=== PATIENT | female | born 1955 | race Caucasian/White ===

== ENCOUNTER → 2018-05-27 15:03 | Outpatient (CLI) | payer MEDICAID, SELFPAY | DX: Z12.31 Encounter for screening mammogram for malignant neoplasm of breast (principal) | CPT/HCPCS: 77063; 77067 ==

== ENCOUNTER → 2018-06-14 07:56 | Outpatient (CLI) | payer MEDICARE, MEDICAID, SELFPAY ==
--- NOTE | 2018-06-14 08:03 | US_ITS ---
STUDY: ULTRASOUND BREAST - LEFT REASON FOR EXAM: Female, 63 years old. History of left nipple inversion. TECHNIQUE: Axial and longitudinal images of the LEFT breast were performed with a high resolution ultrasound transducer. COMPARISON: Comparison is made with prior mammogram dated May 27, 2018. FINDINGS: LEFT Breast: The retroareolar region of the left breast was examined by ultrasound. There is homogeneous fibroglandular tissue. No solid or cystic mass lesion is seen. US/Breast Limited Unilateral IMPRESSION: Unremarkable sonographic examination of the retroareolar region of the left breast. ASSESSMENT CATEGORY: BIRADS Category 1: Negative. A letter regarding these results will be sent to the patient by the facility within 30 days. Electronically Signed: Herber Kapoor MD at 9:58 EDT Tel [phone], Service support ,
== END ==
DX: R92.8 Other abnormal and inconclusive findings on diagnostic imaging of breast (principal)
CPT/HCPCS: 76642

== ENCOUNTER → 2019-12-13 11:50 | Outpatient (CLI) | payer MEDICARE, SELFPAY ==
--- NOTE | 2019-12-13 11:59 | BI_ITS ---
MAMMOGRAPHY - BILATERAL SCREENING REASON FOR EXAM: Female, 64 years old. Routine annual screening examination. PERTINENT HISTORY: Grandmother with breast cancer. Remote right stereotactic breast biopsy. TECHNIQUE: Digital bilateral breast mary jane (3D mammographic acquisition) in the CC and MLO projections. 2-D mediolateral oblique (MLO) and craniocaudad (CC) views of both breasts were obtained. CAD: Full Field Digital Mammography with Computer Added Detection was performed. COMPARISON: Comparison is made with prior study dated May 27, 2018 and June 14, 2017. FINDINGS: Breast Composition: There are scattered areas of fibroglandular density. There are no dominant masses or suspicious calcifications. There is a stable 1 cm x 0.7 cm well-defined nodule in the inferior anterior central portion of the right breast. A tissue marker is seen within. This is unchanged. No other significant abnormalities are identified. There has been no significant change since the prior study. BI/SCREEN MAMM (CAD) W/MARY JANE BILAT IMPRESSION: Stable bilateral screening mammogram. Yearly follow-up mammogram recommended. (A) ASSESSMENT CATEGORY: BIRADS Category 2: Benign. A letter regarding these results will be sent to the patient by the facility within 30 days. Approximately 10% of breast cancers are not detected by mammography. A normal mammogram should not delay biopsy of a clinically suspicious abnormality. [id number] Electronically Signed: Herber Kapoor, at 14:28 EDT , Service support ,
== END ==
DX: Z12.31 Encounter for screening mammogram for malignant neoplasm of breast (principal)
CPT/HCPCS: 77063; 77067

== ENCOUNTER 2020-02-16 10:55 | Emergency (ER) | payer MEDICARE, SELFPAY ==
[2020-02-16 10:56] VITALS: BP 163/88; PULSE 82; RESP 16; TEMP 36.3; O2SAT 98
--- NOTE | 2020-02-16 11:10 | VDLE_ITS ---
Reason For Study: Pain RIGHT LEFT CFV is compressible, spontaneous, phasic, GSV is normal. competent and demonstrates normal CFV is compressible, spontaneous, phasic, augmentation. competent, and demonstrates normal Procedure augmentation. Exam performed portable in ED. FV is compressible, spontaneous, phasic, A preliminary report was called and/or faxed competent and demonstrates normal to RN. augmentation. POP V is compressible, spontaneous, phasic, competent and demonstrates normal augmentation. T/P Trunk is compressible. PTV is compressible. LT PerV is compressible. Acute superficial vein thromosis is noted in the left SSV throughout, slighlty extending into the popliteal vein. Interpretation Summary There is no evidence of left lower extremity deep vein thrombosis. Left great saphenous vein appears patent and compressible segmentally. Superficial thrombophlebitis left small saphenous vein with very slight extension into the left popliteal vein Patent and compressible right common femoral vein Ordering Physician: Fermin Henley Performed By: Magdalene Miles RVT
--- NOTE | 2020-02-16 11:10 | ED.VIS.GEN ---
History of Present Illness Chief Complaint: Lower Extremity Injury Informant: Patient Narrative: Patient presents for evaluation of left calf pain. Patient states she said prior DVT in the right leg as well as PE. She states she had a surgical procedure on her left eye [facility] on Thursday. From what I can see and the computer she was diagnosed with choroid melanoma. She sees Dr. Anthony Iqbal at [facility]. she states that she has tried to really remain fairly active but began to have pain in the left calf yesterday. Is not currently on anticoagulation. Past Medical History - Allergies and Home Meds Allergies/Adverse Reactions: Allergies codeine Allergy (Verified 02/16/20 11:10) Swelling iodine Allergy (Verified 02/16/20 11:10) Swelling Primary Care Physician: Ghada Reyna [Primary Care Provider] - 1 Week Review of Systems General: Denies: Chills, Fever, Sweats Eyes: Denies: Visual changes - bilaterally, Diplopia ENT: Denies: Rhinorrhea, Sore throat Cardiovascular: Denies: Chest pain, Palpitations Respiratory: Denies: Dyspnea, Cough, Dyspnea on exertion Gastrointestinal: Denies: Abdominal pain, Nausea, Vomiting, Diarrhea, Melena, Hematochezia Genitourinary: Denies: Dysuria, Hematuria, Frequency Musculoskeletal: Reports: Extremity Pain. Denies: Back pain Skin: Denies: Rash, Wounds Neurological: Denies: Headache, Weakness, Numbness Physical Exam Vital Signs/Narrative: Vital Signs Temp Pulse Resp BP Pulse Ox 02/16/20 10:56 97.4 F L 82 16 163/88 H 98 Inital Vital Signs reviewed: Yes General: Well nourished, Well developed, No Acute Distress Head: Normocephalic, Atraumatic Eyes: - - Left eye closed and tearing ENT: Moist mucous membranes, No rhinorrhea Neck: Supple, Nontender Cardiovascular: Regular rate, Regular rhythm, No murmurs Respiratory: No distress, CTA bilaterally, Chest nontender Abdomen: Soft, Nontender, Nondistended, Normal bowel sounds Back: Nontender, Normal Inspection Extremities: Calf Tenderness - Left Skin: Normal color, No rash Neurological: Alert, Oriented x3, Cranial nerves II-XII grossly intact, Normal Strength, Normal Sensation Psychological: Normal affect, Normal Mood Diagnostic/Tx/Re-eval - Medical Decision Making Duplex ultrasound demonstrates acute superficial vein thrombosis in the left superficial saphenous vein throughout. This extends slightly into the popliteal vein. I spoke with her ophthalmology oncology physicians. They are comfortable starting on Eliquis. Even though this extends slightly into the popliteal vein with her prior history and active melanoma I think she is at high risk for propagation and therefore we should institute anticoagulation. I will contact her primary care. ED Disposition - Plan for ED Patient: Disposition: Home or Assisted Living Diagnosis: DVT of popliteal vein, Saphenous vein clot, Choroid melanoma of left eye Instructions: ED DVT Prescriptions: Apixaban [Eliquis] 5 mg PO BID #74 tab Prescription Printed [facility]errals: [facility]Ghada Chew [Primary Care Provider] - 1 Week Additional Instructions: I would recommend compression socks. When resting try to write the alphabet with your toes. This will improve blood flow to the leg. Please monitor your eye. If you have increased redness, pressure, double vision or worsening - please contact your surgeon GAL.
[2020-02-16] MEDS: Acetaminophen 500 MG Tablet 1000 MG PO (13:12)
[2020-02-16] MEDS: Ondansetron ODT 4 MG Tablet PO (13:13)
[2020-02-16 13:14] VITALS: RESP 17
[2020-02-16 13:31] VITALS: BP 138/74; PULSE 62; RESP 15; O2SAT 98
== END 2020-02-16 13:38 | disposition home or self-care (01) ==
PROVIDERS: Emergency Provider Emergency Medicine
DX: I82.432 Acute embolism and thrombosis of left popliteal vein (principal); I82.492 Acute embolism and thrombosis of other specified deep vein of left lower extremity; C69.32 Malignant neoplasm of left choroid
CPT/HCPCS: 93971; 99283

== ENCOUNTER → 2020-09-11 08:42 | Outpatient (CLI) | payer MEDICARE, SELFPAY ==
[2020-09-11 09:12] LABS: Absolute Lymphocyte Count 1.82 X10^3/uL (0.83-4.51); Absolute Neutrophil Count 4.4 X10^3/uL (2.0-7.7); Basophil# 0.04 X10^3/uL; Basophil% 0.6 % (0-1); Eosinophil# 0.14 X10^3/uL; Eosinophils% 2.1 % (0-5); Hematocrit 40.7 % (37-47); Hemoglobin 13.4 g/dL (12.0-15.0); Lymphocyte # 1.82 X10^3/ul (4.0); Lymphocyte % 26.7 % (19-41); Mean Corp Hgb Conc 32.9 g/dL (32-36); Mean Corpuscular Hgb 28.8 pg (27.0-32.0); Mean Corpuscular Volume 87.5 fL (81-99); Mean Platelet Vol. 10.3 fl (6.2-12.0); Monocyte# 0.36 X10^3/uL; Monocyte% 5.3 % (0-10); NRBC Flagged by Analyzer 0 % (0-5); Neutrophil # 4.42 X10^3/uL (2.7-7.7); Neutrophil % 64.7 % (47-70); Platelet Count 292 K/mm3 (150-450); RBC Distribution Width CV 13.2 % (11.6-14.6); RBC Distribution Width SD 42.5 fl (35.1-43.9); Red Blood Count 4.65 M/mm3 (4.2-5.4); White Blood Count 6.8 K/mm3 (4.4-11.0)
[2020-09-11 09:27] LABS: Hemoglobin A1c 7.3 % (3.8-5.6)
[2020-09-11 09:32] LABS: ALB/GLOB Ratio 1.1 RATIO (0.9-2.4); AST(SGOT) 15 U/L (15-37); Alanine Aminotransfer ALT/SGPT 25 U/L (13-56); Albumin, Serum 3.8 g/dL (3.2-5.0); Alkaline Phosphatase 69 U/L (45-117); Anion Gap 6 (5-15); BUN 12 mg/dL (7-18); BUN/Creat Ratio 13.4 RATIO (10-20); Calcium,Total 9.3 mg/dL (8.5-10.1); Chloride 106 mmol/L (98-107); EST Glomerular Filtration Rate 67 mL/min (>60); Est Glom Filt Rate - Afr Amer 81 mL/min (>60); Globulin 3.4 g/dL (2.2-4.2); Glucose 162 mg/dL (74-106); Potassium 4.2 mmol/L (3.5-5.1); Protein, Total 7.2 g/dL (6.4-8.2); Sodium Level 141 mmol/L (136-145)
[2020-09-11 09:34] LABS: Vitamin D,25 Hydroxy 86.2 ng/mL
== END ==
PROVIDERS: Referring Provider Family Medicine; Visit Provider Family Medicine
DX: E11.9 Type 2 diabetes mellitus without complications (principal); M25.59 Pain in other specified joint; E55.9 Vitamin D deficiency, unspecified
CPT/HCPCS: 36415; 80053; 82306; 83036; 85025

== ENCOUNTER → 2020-11-14 12:18 | Outpatient (CLI) | payer MEDICARE, SELFPAY ==
--- NOTE | 2020-11-14 12:26 | RAD_ITS ---
STUDY: BARIUM ENEMA. REASON FOR EXAM: Female, 65 years old. INCOMPLETE COLONOSCOPY FLUOROSCOPY TIME (if supplied): ( 1 minute and 13 seconds ) minutes/seconds. 15 images were obtained. TECHNIQUE: A assistant analyst film was obtained. Following this, contrast was introduced retrograde through the rectum. The entire colon was opacified. COMPARISON: None. FINDINGS: On the assistant analyst film, gas is seen in the colon. Surgical clips are seen in the right upper quadrant most likely secondary to prior cholecystectomy. Calcified phleboliths are seen in the pelvis. Minimal left scoliosis and degenerative changes of the lumbar spine. Contrast was introduced retrograde through the rectum. There is extensive diverticulosis of the descending colon as well as the splenic flexure and distal portion of the transverse colon. There is redundancy of the sigmoid colon. I suspect a 1.6 cm x 2 cm polyp in the descending colon just distal to the ileocecal valve. Adjacent to this, a similar appearing filling defect measuring 9 mm is seen. RAD/Barium Enema No Air Cont IMPRESSION: Extensive diverticulosis as described. 2. Filling defects are seen in the proximal ascending colon just distal to the ileocecal valve the larger measures 1.6 cm x 2 cm. These most likely represent small polyps. Electronically Signed: Herber Kapoor MD at 13:20 EST , Service support ,
== END ==
PROVIDERS: Referring Provider Surgery; Visit Provider Surgery
DX: K57.90 Diverticulosis of intestine, part unspecified, without perforation or abscess without bleeding (principal)
CPT/HCPCS: 74270

== ENCOUNTER → 2021-01-08 09:04 | Outpatient (CLI) | payer MEDICARE, SELFPAY ==
[2021-01-08 11:08] LABS: Anion Gap 7 (5-15); BUN 15 mg/dL (7-18); BUN/Creat Ratio 15.6 RATIO (10-20); Calcium,Total 9.1 mg/dL (8.5-10.1); Chloride 102 mmol/L (98-107); Creatinine, Serum 0.96 mg/dL (0.55-1.02); EST Glomerular Filtration Rate 62 mL/min (>60); Est Glom Filt Rate - Afr Amer 74 mL/min (>60); Glucose 166 mg/dL (74-106); Potassium 3.9 mmol/L (3.5-5.1); Sodium Level 137 mmol/L (136-145)
[2021-01-08 11:14] LABS: Hemoglobin A1c 7.4 % (3.8-5.6)
== END ==
DX: I10 Essential (primary) hypertension (principal); E11.9 Type 2 diabetes mellitus without complications
CPT/HCPCS: 36415; 80048; 83036

== ENCOUNTER → 2021-04-03 10:43 | Outpatient (CLI) | payer MEDICARE, SELFPAY ==
[2021-04-03 12:05] LABS: Hemoglobin A1c 7.8 % (3.8-5.6)
[2021-04-03 12:26] LABS: ALB/GLOB Ratio 1.1 RATIO (0.9-2.4); AST(SGOT) 13 U/L (15-37); Alanine Aminotransfer ALT/SGPT 25 U/L (13-56); Albumin, Serum 3.7 g/dL (3.2-5.0); Alkaline Phosphatase 77 U/L (45-117); Anion Gap 7 (5-15); BUN 14 mg/dL (7-18); BUN/Creat Ratio 13.9 RATIO (10-20); Calcium,Total 9.2 mg/dL (8.5-10.1); Chloride 103 mmol/L (98-107); Cholesterol 172 mg/dL (200); Creatinine, Serum 1.01 mg/dL (0.55-1.02); EST Glomerular Filtration Rate 58 mL/min (>60); Est Glom Filt Rate - Afr Amer 70 mL/min (>60); Globulin 3.3 g/dL (2.2-4.2); Glucose 164 mg/dL (74-106); High Density Lipoprotein 48 mg/dL; Potassium 4.3 mmol/L (3.5-5.1); Sodium Level 137 mmol/L (136-145); Triglycerides 198 mg/dL; Very Low Density Lipoprotein 40 mg/dL (5-40)
[2021-04-05 18:38] LABS: Vitamin D 1,25-Dihydroxy 49.6 pg/mL (19.9-79.3)
== END ==
PROVIDERS: Referring Provider Nurse Practitioner Adult Health; Visit Provider Nurse Practitioner Adult Health
DX: E11.9 Type 2 diabetes mellitus without complications (principal); E55.9 Vitamin D deficiency, unspecified
CPT/HCPCS: 36415; 80053; 80061; 82652; 83036

== ENCOUNTER 2021-07-19 14:35 | Emergency (ER) | payer MEDICARE, SELFPAY ==
[2021-07-19 14:35] VITALS: BP 193/87; PULSE 88; RESP 20; TEMP 36.6; O2SAT 99; BMI 30.9
[2021-07-19 14:44] VITALS: PULSE 90; O2SAT 97
--- NOTE | 2021-07-19 14:46 | EX.ED.DYSGE1 ---
HPI History of Present Illness Chief Complaint: Allergic Reaction Informant: patient Onset/Context/Timing Onset: Yesterday Current Severity: Moderate Maximum Severity: Severe Narrative Narrative: Patient presents with possible allergic reaction to clonidine. She was started on clonidine yesterday for blood pressure control. She took her first dose 8 AM yesterday and after taking her 8 PM dose last night states that she felt some slight tightness in her throat and a pasty sensation in her mouth. She took another dose at 8 AM this morning and felt significantly worse. She felt that her throat and tongue were swelling. Patient was able to eat and states that seem to make her throat feel better. She presents 6 and half hours after her most recent dose of medication. [facility] Medical History Diabetes DVT (deep venous thrombosis) GERD (gastroesophageal reflux disease) Hypertension Melanoma of eye Home Medications Glipizide [Glipizide Er] 2.5 mg PO DAILY 02/16/20 [History Last Taken Unknown] apixaban 5 mg PO BID #74 tab 02/16/20 [Rx Last Taken Unknown] cyclopentolate 2 drp LEFT EYE BID 02/16/20 [History Last Taken Unknown] diltiazem HCl 300 mg PO DAILY 02/16/20 [History Last Taken Unknown] ergocalciferol (vitamin D2) 50,000 unit PO Q7D 02/16/20 [History Last Taken Unknown] irbesartan 150 mg PO DAILY 02/16/20 [History Last Taken Unknown] metformin 1,000 mg PO BID 02/16/20 [History Last Taken Unknown] neomycin-polymyxin B-dexameth 1 applic LEFT EYE 4X/DAY 02/16/20 [History Last Taken Unknown] omeprazole 40 mg PO DAILY 02/16/20 [History Last Taken Unknown] diphenhydramine HCl [Benadryl] 50 mg PO TID PRN #14 cap 07/19/21 [Rx Last Taken Unknown] famotidine [Pepcid] 40 mg PO DAILY #5 tab 07/19/21 [Rx Last Taken Unknown] prednisone 60 mg PO DAILY #15 tab 07/19/21 [Rx Last Taken Unknown] Allergy/AdvReac Type Severity Reaction Status Date / Time codeine Allergy Swelling Verified 07/19/21 14:37 iodine Allergy Swelling Verified 07/19/21 14:37 Social History Smoking Status: Former smoker ROS ROS ED Constitutional Constitutional ED: Denies chills or fever(s) Eyes Eyes: Denies change in vision ENT ENT ED: Reports sore throat and other Details: Throat and tongue swelling Cardiovascular Cardiovascular: Denies chest pain Respiratory/Chest Respiratory/Chest: Reports dyspnea; Denies cough Gastrointestinal Gastrointestinal: Denies abdominal pain, diarrhea, nausea or vomiting Genitourinary Genitourinary ED: Denies dysuria Musculoskeletal Musculoskeletal: Denies back pain Integumentary Denies rash Neurologic Neurologic: Denies headache(s) or weakness Allergic/Immunologic Allergic/Immunologic ED: Denies urticaria EXAM Physical Exam Const Vital Signs: 07/19/21 14:35 07/19/21 14:44 Temperature 97.8 F Temperature Source Temporal Pulse Rate 88 90 Respiratory Rate 20 H Blood Pressure 193/87 H Blood Pressure Mean 122 Pulse Ox 99 97 Oxygen Delivery Method Room Air Room Air Positive well nourished and well developed General Appearance ED: well developed HEENT Reports normocephalic, head/scalp atraumatic and moist mucous membranes HEENT Narrative: Intraoral examination shows no obvious abnormalities. No visible tongue edema. Posterior pharynx appears normal. Patient tolerating secretions well and speaks with a strong voice. Eyes PERRL and EOMs intact bilaterally Neck supple Lymph Lymphatic Narrative: Bilateral anterior cervical lymphadenopathy. Chest Wall inspection of chest normal and palpation of chest normal Resp normal respiratory effort and clear to auscultation bilaterally Cardio regular rate and regular rhythm GI normal to inspection, nondistended, normoactive bowel sounds Palpation: soft Extremity normal to inspection Neuro oriented x3 and no sensory deficits noted Sensorium / Orientation: alert Motor Exam: strength 5/5 throughout Psych mental status grossly normal Skin no rashes or lesions noted MDM MDM MDM Narrative Medical decision making narrative: Patient is placed on continuous pulse ox monitoring. She is given Solu-Medrol, Pepcid, Benadryl. Treatment and Re-Evaluation Comments:: Multiple repeat examinations patient has shown significant improvement. She states her tongue feels back to baseline. She is tolerating p.o. fluids at this time. She will require further observation of this to be set up to oncoming physician. I anticipate she will be able to be discharged to home in a couple hours. I will go ahead and have medications written for her. Discharge Plan Triage Chief Complaint: Allergic Reaction ED Provider: Dominique Fuentes Dx/Rx/DC Orders Clinical Impression: Allergic reaction Instructions: ED General Allergic Reactions Prescriptions: New prednisone 20 mg tablet 60 mg PO DAILY Qty: 15 RF: 0 diphenhydramine HCl [Benadryl] 25 mg capsule 50 mg PO TID PRN (Reason: allergic reaction) Qty: 14 RF: 0 famotidine [Pepcid] 40 mg tablet 40 mg PO DAILY Qty: 5 RF: 0 No Action diltiazem HCl 300 MG capsule,extended release 24 hr 300 mg PO DAILY RF: 0 omeprazole 40 MG capsule,delayed release(DR/EC) 40 mg PO DAILY RF: 0 ergocalciferol (vitamin D2) 50,000 UNIT capsule 50,000 unit PO Q7D RF: 0 irbesartan 150 MG tablet 150 mg PO DAILY RF: 0 metformin 500 MG tablet extended release 24 hr 1,000 mg PO BID RF: 0 cyclopentolate 15 ML drops 2 drp LEFT EYE BID RF: 0 neomycin-polymyxin B-dexameth 3.5 GM ointment 1 applic LEFT EYE 4X/DAY RF: 0 Glipizide [Glipizide Er] 2.5 MG Tab.Er.24 2.5 mg PO DAILY RF: 0 apixaban 5 MG tablet 5 mg PO BID Qty: 74 RF: 0 Primary Care Provider: Ghada Holcomb Referrals: [facility] Ghada Duncan [Primary Care Provider] - 1 Week Disposition Disposition: Home, Self Care
[2021-07-19] MEDS: DiphenhydrAMINE 50 MG/ML Syringe 25 MG IV (15:06)
[2021-07-19] MEDS: MethylPREDNISolone 125 MG/2 ML Vial IV (15:08)
[2021-07-19] MEDS: Famotidine 200 MG/20 ML MDV 20 MG in 0.9% Normal Saline (Pres. free 8 ML 300 MG IV (15:15)
--- NOTE | 2021-07-19 16:25 | ED.RN ---
CALLED PHARMACY REGARDING EYE DROPS.
[2021-07-19] MEDS: prednisoLONE eye drops (1 mL) 1 DROP OPTH.BTL 1 DRP LEFT EYE (16:31)
[2021-07-19 17:27] VITALS: O2SAT 95
[2021-07-19 18:03] VITALS: BP 158/73; PULSE 73; RESP 16; O2SAT 98
== END 2021-07-19 18:06 | disposition home or self-care (01) ==
PROVIDERS: Emergency Provider Emergency Medicine
DX: R06.00 Dyspnea, unspecified (principal); R59.0 Localized enlarged lymph nodes; J02.9 Acute pharyngitis, unspecified; T46.5X5A Adverse effect of other antihypertensive drugs, initial encounter; Y92.9 Unspecified place or not applicable; E11.9 Type 2 diabetes mellitus without complications; I10 Essential (primary) hypertension; K21.9 Gastro-esophageal reflux disease without esophagitis; Z79.84 Long term (current) use of oral hypoglycemic drugs; Z79.01 Long term (current) use of anticoagulants; Z79.52 Long term (current) use of systemic steroids; Z87.891 Personal history of nicotine dependence
CPT/HCPCS: 96374; 96375; 99283; J7030; J3490

== ENCOUNTER 2021-11-25 16:04 | Emergency (ER) | payer MEDICARE, MEDICAID, SELFPAY ==
[2021-11-25 16:05] VITALS: BP 161/72; PULSE 104; RESP 16; TEMP 36.2; O2SAT 98; BMI 29.2
[2021-11-25 16:44] LABS: Absolute Lymphocyte Count 2.08 X10^3/uL (0.83-4.51); Absolute Neutrophil Count 7.7 X10^3/uL (2.0-7.7); Basophil# 0.08 X10^3/uL; Basophil% 0.8 % (0-1); Eosinophil# 0.05 X10^3/uL; Eosinophils% 0.5 % (0-5); Hematocrit 39.7 % (37-47); Hemoglobin 13.1 g/dL (12.0-15.0); Lymphocyte # 2.08 X10^3/ul (0.83-4.51); Lymphocyte % 19.7 % (19-41); Mean Corpuscular Hgb 27.8 pg (27.0-32.0); Mean Corpuscular Volume 84.1 fL (81-99); Monocyte# 0.65 X10^3/uL; Monocyte% 6.1 % (0-10); NRBC Flagged by Analyzer 0 % (0-5); Neutrophil # 7.66 X10^3/uL (2.7-7.7); Neutrophil % 72.3 % (47-70); Platelet Count 481 K/mm3 (150-450); RBC Distribution Width CV 12.9 % (11.6-14.6); RBC Distribution Width SD 39.8 fl (35.1-43.9); Red Blood Count 4.72 M/mm3 (4.2-5.4); White Blood Count 10.6 K/mm3 (4.4-11.0)
[2021-11-25 16:54] LABS: Mucous, Urine 0 SEEN /hpf (<or=2+); Red Blood Cells-Urine 0 SEEN /hpf (0-5)
[2021-11-25 17:01] LABS: Anion Gap 6 (5-15); BUN 11 mg/dL (7-18); BUN/Creat Ratio 10.5 RATIO (10-20); Calcium,Total 9.5 mg/dL (8.5-10.1); Chloride 105 mmol/L (98-107); Creatinine, Serum 1.05 mg/dL (0.55-1.02); EST Glomerular Filtration Rate 55 mL/min (>60); Est Glom Filt Rate - Afr Amer 67 mL/min (>60); Estimated Creatinine Clearance 42.42 ml/min; Glucose 125 mg/dL (74-106); Potassium 4.1 mmol/L (3.5-5.1); Sodium Level 135 mmol/L (136-145)
[2021-11-25 17:01] LABS: Color, Urine Yellow (Yellow); Glucose, Dipstick Normal (Normal); Ketone-Dipstick 5 mg/dl (Negative); Leukocyte Esterase-Dipstick 500 /ul (Negative); Nitrite-Dipstick Negative (Negative); Occult Blood-Urine Negative /ul (Negative); Protein-Dipstick 30 mg/dl (Negative); Specific Gravity, Urine 1.025 (1.002-1.030); Urine Clarity Sl. Cloudy (Clear); Urine Urobilinogen Normal (Normal)
[2021-11-25 17:02] LABS: Urine Bilirubin Dipstick 1 mg/dL (Negative)
--- NOTE | 2021-11-25 17:07 | CT_ITS ---
STUDY: CT Abdomen And Pelvis W/ Contrast Injection 11/25/2021 7:26 PM REASON FOR EXAM: Female, 66 years old. ABDOMINAL PAIN abd pain TECHNIQUE: Transaxial images were obtained with oral contrast, and with Oral and amp; IV and amp; 100mL Isovue-370 intravenous contrast. Individualized dose optimization techniques were used for this CT. COMPARISON: None. FINDINGS: The visualized lung bases are unremarkable. The visualized portions of the heart are within normal limits. There is hepatomegaly with diffuse hepatic enlargement. Diffuse heterogeneous lesions in the liver concerning for metastatic disease. There are surgical clips in the gallbladder fossa consistent with a prior cholecystectomy. Normal spleen. Normal pancreas. Enlarged peripancreatic lymph nodes. Normal bilateral adrenal glands. No acute findings of the right kidney. No acute findings of the left kidney. There is a small hiatal hernia. Normal small intestine. There are multiple colonic diverticula consistent with diverticulosis. There is non-visualization of the appendix. There are calcifications of the abdominal aorta. This is consistent for atherosclerotic disease. There is no abdominal aortic aneurysm. Normal inferior vena cava. Subcentimeter mesenteric lymph nodes. Normal urinary bladder. There is absence of the uterus consistent with a prior hysterectomy. There is an umbilical hernia containing fat. There are diffuse degenerative changes of the visualized lumbar spine. There is scoliosis of the lumbar spine. There is bilateral neural foraminal stenosis at L4-5 and L5-S1. There is scoliosis of the lumbar spine. IMPRESSION: (NOT LISTED IN ORDER OF SIGNIFICANCE) Enlarged liver. Diffuse heterogeneous lesions in the liver concerning for metastatic disease. ACR White Paper guidelines (Nichelle et al. JACR 2017; 14(11):5636-2041.) suggest the following. For patients with low risk of malignancy, recommend hepatic MR. For patients with high risk of malignancy (known malignancy with a propensity to metastasize to the liver, cirrhosis, and/or other hepatic risk factors), recommend hepatic MR or core biopsy. Enlarged peripancreatic lymph nodes. There are surgical clips in the gallbladder fossa consistent with a prior cholecystectomy. Other findings as above. Electronically Signed: Colin Meyer MD at 19:31 EST , CT/Abdomen/Pelvis W IV Cont ONLY
[2021-11-25 17:09] LABS: Bacteria 1+ /hpf (None Seen); Squamous Epithelial Cells - UA 0-5 SEEN /hpf (5-10); White Blood Cells 0-5 SEEN /hpf (0-5)
--- NOTE | 2021-11-25 17:09 | EDS_ITS ---
HPI HPI - GI History of Present Illness Chief Complaint: Abd Pain Informant: patient Abdominal Pain/Flank Pain Onset: Month(s) Context: Gradual Onset Timing: Intermittent Quality: Aching Location: Epigastric, RUQ and LUQ Current Severity: Mild Maximum Severity: Mild Worsened by: Nothing Relieved by: Food Nausea/Vomiting/Emesis GI Symptom: Positive for Nausea and Vomiting Onset: Weeks Severity: Mild Diarrhea/Melena/Hematochezia GI Symptom: Negative for Diarrhea, Melena and Hematochezia Associated Symptoms Associated Symptoms: Negative for Dysuria, Frequency, Hematuria and Urgency Narrative Narrative: 58-year-old female history of diabetes, DVT on Eliquis prior left eye melanoma, left eye blindness, cholecystectomy, appendectomy and hysterectomy. States for the last 2 months she has had nausea. Over the last several weeks to 1 month she has had nausea and vomiting. And now also having upper abdominal pain which radiates to both flanks. Decreased intake. She has had both upper and lower endoscopy without any specific diagnosis about a year ago. She has had a recent about 10 pound weight loss. No fever. No dysuria. Prior similar symptoms: Yes Recent Illness/Hospitalization: No PFSH PFSH Medical History Diabetes DVT (deep venous thrombosis) GERD (gastroesophageal reflux disease) Hypertension Melanoma of eye Home Medications apixaban 5 mg PO BID #74 tab 02/16/20 [Rx Last Taken Unknown] diltiazem HCl 300 mg PO DAILY 02/16/20 [History Last Taken Unknown] ergocalciferol (vitamin D2) 50,000 unit PO Q7D 02/16/20 [History Last Taken Unknown] irbesartan 150 mg PO DAILY 02/16/20 [History Last Taken Unknown] metformin 1,000 mg PO BID 02/16/20 [History Last Taken Unknown] omeprazole 40 mg PO DAILY 02/16/20 [History Last Taken Unknown] cholecalciferol (vitamin D3) 1,250 mcg PO DAILY 11/25/21 [History Last Taken Unknown] dorzolamide-timolol 1 drp LEFT EYE BID 11/25/21 [History Last Taken Unknown] gabapentin 300 mg PO BID 11/25/21 [History Last Taken Unknown] glipizide 2.5 mg PO DAILY 11/25/21 [History Last Taken Unknown] hydralazine 10 mg PO BID 11/25/21 [History Last Taken Unknown] loratadine 10 mg PO DAILY 11/25/21 [History Last Taken Unknown] ondansetron 4 mg PO Q4H 4 Days #14 tab 11/25/21 [Rx Last Taken Unknown] prednisolone acetate 1 drp LEFT EYE BID 11/25/21 [History Last Taken Unknown] Allergy/AdvReac Type Severity Reaction Status Date / Time codeine Allergy Swelling Verified 11/25/21 16:08 iodine Allergy Swelling Verified 11/25/21 16:08 Social History Smoking Status: Former smoker ROS ROS ED ROS Narrative Nausea and vomiting. Abdominal pain. Review of Systems ROS Unobtainable: Denies due to encephalopathy Constitutional Constitutional ED: Denies fever(s) ENT ENT ED: Denies ear pain Cardiovascular Cardiovascular: Denies chest pain Respiratory/Chest Respiratory/Chest: Denies dyspnea Gastrointestinal Gastrointestinal: Reports abdominal pain, nausea and vomiting; Denies constipation, diarrhea or melena Genitourinary Genitourinary ED: Denies dysuria Musculoskeletal Musculoskeletal: Denies myalgias Integumentary Denies rash Neurologic Neurologic: Denies headache(s) Psychiatric Psychiatric: Denies depression Endocrine Endocrinology: Denies polyuria Hematologic/Lymphatic Hematologic/Lymphatic: Denies easy bruising Allergic/Immunologic Allergic/Immunologic ED: Denies urticaria EXAM Physical Exam Narrative Exam Narrative: 66-year-old female no acute distress. Vital signs stable afebrile. H EENT right eye unremarkable. Left eye lens implant. Blind in the left eye.. Moist mucous memories. Lungs clear to auscultation. Heart regular rhythm no murmur. Abdomen soft nondistended normal bowel sounds no peritoneal signs. Tender in both the epigastric and both upper quadrants. No hernia or mass. No obstruction. Positive bowel sounds. Both lower quadrants are unremarkable. Patient moving all 4 extremities. Calves are nontender without edema. Neurologically she is awake and alert. Const Vital Signs: 11/25/21 16:05 Temperature 97.1 F L Temperature Source Temporal Pulse Rate 104 H Respiratory Rate 16 Blood Pressure 161/72 H Blood Pressure Mean 101 Pulse Ox 98 Oxygen Delivery Method Room Air Positive well nourished, well developed and obese; Negative for cachectic, contractures or unkempt General Appearance ED: well developed and NAD; Negative for unkempt, cachectic, contractures or pallor Nutritional Appearance: obese; Negative for cachectic HEENT Reports moist mucous membranes normocephalic and atraumatic; Negative for trauma or tenderness Eyes PERRL and EOMs intact bilaterally General Eye ED: Negative for pale conjunctiva or scleral icterus Neck no lymphadenopathy, supple and no JVD General: Negative for tenderness Resp normal respiratory effort and clear to auscultation bilaterally Auscultation: Negative for rales, rhonchi or wheezes Cardio regular rate, regular rhythm, S1 normal heart sound, S2 normal heart sound and no murmurs GI non-distended and no masses; Negative for non-tender Inspection: Negative for abdominal distention Auscultation: normoactive bowel sounds; Negative for hyperactive bowel sounds or hypoactive bowel sounds Palpation: soft and tender; Negative for guarding, rigid or rebound tenderness present Back/Spine no CVA tenderness General Back: Negative for CVA tenderness Extremity full ROM General Extremety ED: Negative for edema or tenderness General Extremity: Negative for edema Neuro moves all extremities Neuro Narrative: Left eye blindness. Sensorium / Orientation: alert, oriented to person, oriented to place and oriented to time; Negative for orientation impaired, confused, lethargic or jean porous Motor Exam: strength 5/5 throughout Psych mental status grossly normal and thought process normal Appearance: Negative for unkempt Skin no wounds General Skin Exam: Negative for jaundice or pallor Lesions: no lesions Rashes: no rashes MDM MDM MDM Narrative Medical decision making narrative: 58-year-old female with 1 to 2-month history of nausea vomiting abdominal pain. CAT scan labs are pending. She also be treated with IV morphine and Zofran for pain. Repeat exam patient is doing well at 8:15 PM. She denies discussed her test results specifically her CAT scan and my concern for metastatic disease to her liver. She understands we do not have a firm diagnosis and may need further studies including a liver biopsy. She is already seeing Dr. Hai Davis of oncology and will follow up with him. She is finally being discharged to home and will be given a prescription of Zofran which we will fill here. Lab Data Attestation: I reviewed the patient's lab results. Lab results narrative: CBC White count 10. H&H of 13 and 39. Electrolytes show a gap of 6 a normal BUN and creatinine. Glucose 125. UA is negative. Labs: Laboratory Results - last 24 hr 11/25/21 11/25/21 11/25/21 16:10 16:10 16:50 WBC 10.6 RBC 4.72 Hgb 13.1 Hct 39.7 MCV 84.1 MCH 27.8 MCHC 33.0 RDW Std Deviation 39.8 RDW Coeff of Kenny 12.9 Plt Count 481 H MPV 11.0 Immature Gran % (Auto) 0.600 Neut % (Auto) 72.3 H Lymph % (Auto) 19.7 [place] % (Auto) 6.1 Eos % (Auto) 0.5 Baso % (Auto) 0.8 Absolute Neuts (auto) 7.7 Absolute Lymphs (auto) 2.08 Nucleated RBC % 0 Sodium 135 L Potassium 4.1 Chloride 105 Carbon Dioxide 24.0 Anion Gap 6 BUN 11 Creatinine 1.05 H Estim Creat Clear Calc 42.42 Est GFR (MDRD) Af Amer 67 Est GFR (MDRD) Non-Af 55 L BUN/Creatinine Ratio 10.5 Glucose 125 H Calcium 9.5 Urine Color Yellow Urine Clarity Sl. Cloudy Urine pH 5.0 Ur Specific [place] 1.025 Urine Protein 30 H Urine Glucose (UA) Normal Urine Ketones 5 H Urine Occult Blood Negative Urine Nitrite Negative Urine Bilirubin 1 H Urine Urobilinogen Normal Ur Leukocyte Esterase 500 H Urine RBC 0 SEEN Urine WBC 0-5 SEEN Ur Squamous Epith Cells 0-5 SEEN Urine Bacteria 1+ Urine Mucus 0 SEEN Radiography Diagnostic Testing: Clinical Impression(s) from Imaging Studies Abdomen/Pelvis CT 11/25/21 17:07 Discharge Plan Triage Chief Complaint: Abd Pain ED Provider: Herman Caicedo Dx/Rx/DC Orders Clinical Impression: Abdominal pain Instructions: Abdominal Pain, ED Vomiting (Adult) Prescriptions: New ondansetron 4 mg tablet,disintegrating 4 mg PO Q4H 4 Days Qty: 14 RF: 0 No Action diltiazem HCl 300 MG capsule,extended release 24 hr 300 mg PO DAILY RF: 0 omeprazole 40 MG capsule,delayed release(DR/EC) 40 mg PO DAILY RF: 0 ergocalciferol (vitamin D2) 50,000 UNIT capsule 50,000 unit PO Q7D RF: 0 irbesartan 150 MG tablet 150 mg PO DAILY RF: 0 metformin 500 MG tablet extended release 24 hr 1,000 mg PO BID RF: 0 apixaban 5 MG tablet 5 mg PO BID Qty: 74 RF: 0 hydralazine 10 mg tablet 10 mg PO BID RF: 0 prednisolone acetate 1 % drops,suspension 1 drp LEFT EYE BID RF: 0 glipizide 2.5 mg tablet extended release 24hr 2.5 mg PO DAILY RF: 0 gabapentin 300 mg capsule 300 mg PO BID RF: 0 dorzolamide-timolol 22.3-6.8 mg/mL drops 1 drp LEFT EYE BID RF: 0 loratadine 10 mg Tablet 10 mg PO DAILY RF: 0 cholecalciferol (vitamin D3) 1,250 mcg (50,000 unit) capsule 1,250 mcg PO DAILY RF: 0 [facility] Referrals: Hai Davis DO [STAFF PHYSICIAN] - As soon as possible [facility],Gh[facility] Chew [Primary Care Provider] - Activity Restrictions/Additional Instructions: Follow-up with Dr. Hai Davis soon as possible. I did speak with him this evening. Most likely will need a liver biopsy. Zofran as needed for nausea. Disposition Disposition: Home, Self Care
[2021-11-25] MEDS: Ondansetron 4 MG/2 ML Vial IV ×2 (17:52→20:36)
[2021-11-25] MEDS: MethylPREDNISolone 125 MG/2 ML Vial IV (17:52)
[2021-11-25] MEDS: Morphine 4 MG/ML Syringe IV ×2 (17:54→20:36)
[2021-11-25] MEDS: DiphenhydrAMINE 50 MG/ML Syringe 25 MG IV (18:02)
[2021-11-25 20:00] VITALS: BP 123/78; PULSE 98; RESP 17; O2SAT 95
[2021-11-25 20:52] VITALS: BP 114/74; PULSE 88; RESP 17; O2SAT 95
== END 2021-11-25 21:22 | disposition home or self-care (01) ==
PROVIDERS: Emergency Provider Emergency Medicine; Visit Provider Emergency Medicine
DX: R10.13 Epigastric pain (principal); E11.9 Type 2 diabetes mellitus without complications; R11.2 Nausea with vomiting, unspecified; I10 Essential (primary) hypertension; K21.9 Gastro-esophageal reflux disease without esophagitis; E66.9 Obesity, unspecified; Z90.49 Acquired absence of other specified parts of digestive tract; Z90.710 Acquired absence of both cervix and uterus; Z79.01 Long term (current) use of anticoagulants; Z79.84 Long term (current) use of oral hypoglycemic drugs; Z79.899 Other long term (current) drug therapy; Z86.718 Personal history of other venous thrombosis and embolism; Z87.891 Personal history of nicotine dependence
CPT/HCPCS: 74177; 80048; 81001; 85025; 96374; 96375; 96376; 99283; Q9967; A4216; J2405

== ENCOUNTER 2021-12-16 11:19 | Emergency (ER) | payer MEDICARE, MEDICAID, SELFPAY ==
[2021-12-16 11:19] VITALS: BP 165/79; PULSE 112; RESP 16; TEMP 36.3; O2SAT 96; BMI 28.0
--- NOTE | 2021-12-16 13:11 | CT_ITS ---
STUDY: CT ABDOMEN WITH CONTRAST REASON FOR EXAM: Female, 66 years old. Right upper quadrant pain status post liver biopsy RADIATION DOSAGE (If Supplied By Facility): CTDIvol = ( 18.1 ) mGy, DLP = ( 913.18 ) mGycm TECHNIQUE: Transaxial images were obtained post I.V. administration of IV 100mL Isovue-300, and oral contrast. Sagittal and coronal images were reconstructed. Individualized dose optimization techniques were used for this CT. COMPARISON: Comparison is made with prior examination of 11/25/2021. FINDINGS: Minimal increased markings at the right lung base. Coronary artery calcification. There is hepatomegaly with diffuse hepatic enlargement. Heterogeneous appearance of the liver with focal areas of decreased attenuation suggestive of metastatic disease. There now is evidence of a 3.6 cm x 2.1 cm focal collection of the hyperdense fluid in the right subcapsular perihepatic space suggestive of possible resolving hematoma from recent biopsy. There are surgical clips in the gallbladder fossa consistent with a prior cholecystectomy. Normal spleen. There is diffuse atrophy of the pancreas. Normal bilateral adrenal glands. Normal right kidney. Normal left kidney. Normal visualized stomach. Normal small intestine. Normal colon. The appendix is visualized and appears normal. There is diffuse atherosclerotic calcification of the abdominal aorta, without a demonstrated aneurysm. Normal inferior vena cava. Normal retroperitoneum. There is a 3.5 cm x 3.4 cm cystic structure in the right lower abdomen. Normal abdominal wall. There are diffuse degenerative changes of the visualized lumbar spine. CT/Abdomen WITH IV Contrast IMPRESSION: Heterogeneous appearance of the liver with findings suggestive of a small resolving subcapsular hematoma overlying the right lobe of the liver. Stable hepatomegaly Electronically Signed: Herber Kapoor MD at 14:54 EDT ,
--- NOTE | 2021-12-16 13:24 | EX.ED.DYSGE1 ---
HPI History of Present Illness Chief Complaint: Abd Pain Detail of Chief Complaint: Increased pain since liver biopsy this past Thursday Informant: patient Onset/Context/Timing Onset: Days (3 days ago, ThursdayDecember 13) Context: Sudden Onset Timing: Continuous Quality: Pain Location: Right upper quadrant Current Severity: Moderate Maximum Severity: Severe Worsened by: Movement and breathing Relieved by: Nothing Associated Symptoms Associated Symptoms: No other symptoms Narrative Narrative: Patient is a 66-year-old woman with past medical history of melanoma who was seen 1 week ago and had a CAT scan which revealed liver lesions. Patient states she discontinued her Eliquis Thursday for biopsy on Thursday. She was kept longer than normal at [facility] after the biopsy because of pain. Patient reports pleuritic pain. She does have history of PE and DVT and reason she is on Eliquis. She denies orthostatic symptoms. She denies pain referred to her shoulder. She denies black or maroon-colored stool. She denies blood in her urine. She denies fever, chills night sweats. She denies upper respiratory symptoms. She denies anginal equivalent symptoms. Prior similar symptoms: No Recent Illness/Hospitalization: Yes [facility] Medical History Diabetes DVT (deep venous thrombosis) GERD (gastroesophageal reflux disease) Hypertension Melanoma of eye Home Medications apixaban 5 mg PO BID #74 tab 02/16/20 [Rx Last Taken Unknown] diltiazem HCl 300 mg PO DAILY 02/16/20 [History Last Taken Unknown] ergocalciferol (vitamin D2) 50,000 unit PO Q7D 02/16/20 [History Last Taken Unknown] irbesartan 150 mg PO DAILY 02/16/20 [History Last Taken Unknown] metformin 1,000 mg PO BID 02/16/20 [History Last Taken Unknown] omeprazole 40 mg PO DAILY 02/16/20 [History Last Taken Unknown] cholecalciferol (vitamin D3) 1,250 mcg PO DAILY 11/25/21 [History Last Taken Unknown] dorzolamide-timolol 1 drp LEFT EYE BID 11/25/21 [History Last Taken Unknown] gabapentin 300 mg PO BID 11/25/21 [History Last Taken Unknown] glipizide 2.5 mg PO DAILY 11/25/21 [History Last Taken Unknown] hydralazine 10 mg PO BID 11/25/21 [History Last Taken Unknown] loratadine 10 mg PO DAILY 11/25/21 [History Last Taken Unknown] ondansetron 4 mg PO Q4H 4 Days #14 tab 11/25/21 [Rx Last Taken Unknown] prednisolone acetate 1 drp LEFT EYE BID 11/25/21 [History Last Taken Unknown] morphine 30 mg PO DAILY 15 Days #15 cap 12/16/21 [Rx Last Taken Unknown] Allergy/AdvReac Type Severity Reaction Status Date / Time codeine Allergy Swelling Verified 12/16/21 11:21 iodine Allergy Swelling Verified 12/16/21 11:21 Social History (Updated 12/16/21 @ 13:[address] Kar Carlton MD) household members: none Smoking Status: Former smoker substance use type: does not use ROS ROS ED Constitutional Constitutional ED: Denies chills, fever(s), subjective, sweats or weight loss Eyes Eyes: Reports other Details: Melanoma left thigh ; Denies blurry vision, change in vision or diplopia ENT ENT ED: Denies ear pain, rhinorrhea or sore throat Cardiovascular Cardiovascular: Reports chest pain and other Details: Chest pain has a pleuritic component on the right side. ; Denies orthopnea, palpitations, paroxysmal nocturnal dyspnea or racing heartbeat Respiratory/Chest Respiratory/Chest: Reports dyspnea on exertion; Denies cough, dyspnea, orthopnea, paroxysmal nocturnal dyspnea or sputum Gastrointestinal Gastrointestinal: Reports abdominal pain and nausea; Denies constipation, diarrhea, melena or vomiting Genitourinary Genitourinary ED: Denies dysuria, hematuria or urinary frequency Musculoskeletal Musculoskeletal: Denies arthralgias, back pain, myalgias or neck pain Integumentary Denies Abrasions or rash Neurologic Neurologic: Denies paresthesias or weakness Endocrine Endocrinology: Denies polydipsia, polyphagia or polyuria Hematologic/Lymphatic Hematologic/Lymphatic: Reports easy bleeding and easy bruising; Denies anemia EXAM Physical Exam Const Vital Signs: 12/16/21 11:19 Temperature 97.3 F L Temperature Source Temporal Pulse Rate 112 H Respiratory Rate 16 Blood Pressure 165/79 H Blood Pressure Mean 107 Pulse Ox 96 Oxygen Delivery Method Room Air Positive well nourished and well developed General Appearance ED: well developed and pallor; Negative for cyanotic, diaphoretic or NAD HEENT HEENT Narrative: Head is atraumatic normocephalic. 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 Extract muscles are intact. Mucosas moist. Nares patent. Eyes EOMs intact bilaterally; Negative for PERRL General Eye ED: Negative for pale conjunctiva or scleral icterus Neck no lymphadenopathy, supple and no JVD Resp normal respiratory effort and clear to auscultation bilaterally Cardio regular rhythm, S1 normal heart sound, S2 normal heart sound and no murmurs Rate: tachycardic GI non-distended; Negative for non-tender or hepatosplenomegaly Inspection: abdominal distention Auscultation: normoactive bowel sounds and hypoactive bowel sounds; Negative for hyperactive bowel sounds Palpation: soft and tender RUQ (No hepatomegaly. No peritoneal findings.); Negative for rebound tenderness present Back/Spine no CVA tenderness Cervical Spine: Negative for cervical spine tenderness Thoracic Spine / Upper Back: Negative for thoracic spinal tenderness or paraspinal muscle tenderness Extremity normal to inspection General Extremety ED: Negative for tenderness Neuro oriented x3 and CN's II-XII intact bilaterally Sensorium / Orientation: alert Psych Mood & Affect: depressed Skin no rashes or lesions noted and no wounds General Skin Exam: pallor; Negative for jaundice MDM MDM MDM Narrative Medical decision making narrative: CBC was obtained to assess H&H and white count. Basic metabolic panel to assess renal function prior to CT of the abdomen with IV contrast. CT of the abdomen is obtained to evaluate for hepatic injury. Also will be able to determine if she has a right lower lobe pneumonia. She was medicated with morphine and Zofran for her pain and nausea. Since patient has reaction to iodine she was pretreated with H1, H2 jarrett and Solu-Medrol prior to CT of the abdomen with IV contrast to evaluate for liver injury. She has not had a reaction to the morphine she was given. She does report port slight improvement of her pain. Lab Data Attestation: I reviewed the patient's lab results. Lab results narrative: CBC, H&H are unremarkable. Liver enzymes unremarkable. Labs: Laboratory Results - last 24 hr 12/16/21 12/16/21 13:30 13:30 WBC 8.2 RBC 4.57 Hgb 11.9 L Hct 38.2 MCV 83.6 MCH 26.0 L MCHC 31.2 L RDW Std Deviation 43.7 RDW Coeff of Kenny 14.3 Plt Count 416 MPV 11.0 Immature Gran % (Auto) 0.400 Neut % (Auto) 76.7 H Lymph % (Auto) 15.7 L [place] % (Auto) 6.7 Eos % (Auto) 0.1 Baso % (Auto) 0.4 Absolute Neuts (auto) 6.3 Absolute Lymphs (auto) 1.28 Nucleated RBC % 0 Total Bilirubin 0.60 Direct Bilirubin 0.23 AST 42 H ALT 38 Alkaline Phosphatase 119 H Total Protein 6.9 Albumin 2.7 L Globulin 4.2 Radiography Diagnostic Testing: Clinical Impression(s) from Imaging Studies Abdomen CT 12/16/21 13:11 IMPRESSION: Heterogeneous appearance of the liver with findings suggestive of a small resolving subcapsular hematoma overlying the right lobe of the liver. Stable hepatomegaly Electronically Signed: Herber Kapoor MD at 14:54 EDT , CT of the abdomen with IV contrast reveals a small hemorrhage in the proximity of the biopsy site. This is all likely as the cause of her symptoms and findings. Plan is discharged to home with pain medicine. Patient does have evidence of metastatic disease involving the liver as well. This was known on prior images. Discharge Plan Triage Chief Complaint: Abd Pain ED Provider: Kar Carlton Dx/Rx/DC Orders Clinical Impression: Hemorrhage following liver biopsy, Cancer, metastatic to liver, Intraocular melanoma of left eye, Subcapsular hepatic hematoma Instructions: ED Post Op Wound Check, Bleeding, Cancer Overview Prescriptions: New morphine 30 mg capsule, ER multiphase 24 hr 30 mg PO DAILY 15 Days Qty: 15 RF: 0 No Action diltiazem HCl 300 MG capsule,extended release 24 hr 300 mg PO DAILY RF: 0 omeprazole 40 MG capsule,delayed release(DR/EC) 40 mg PO DAILY RF: 0 ergocalciferol (vitamin D2) 50,000 UNIT capsule 50,000 unit PO Q7D RF: 0 irbesartan 150 MG tablet 150 mg PO DAILY RF: 0 metformin 500 MG tablet extended release 24 hr 1,000 mg PO BID RF: 0 apixaban 5 MG tablet 5 mg PO BID Qty: 74 RF: 0 hydralazine 10 mg tablet 10 mg PO BID RF: 0 prednisolone acetate 1 % drops,suspension 1 drp LEFT EYE BID RF: 0 glipizide 2.5 mg tablet extended release 24hr 2.5 mg PO DAILY RF: 0 gabapentin 300 mg capsule 300 mg PO BID RF: 0 dorzolamide-timolol 22.3-6.8 mg/mL drops 1 drp LEFT EYE BID RF: 0 loratadine 10 mg Tablet 10 mg PO DAILY RF: 0 cholecalciferol (vitamin D3) 1,250 mcg (50,000 unit) capsule 1,250 mcg PO DAILY RF: 0 ondansetron 4 mg tablet,disintegrating 4 mg PO Q4H 4 Days Qty: 14 RF: 0 Primary Care Provider: [facility] Ghada Duncan Referrals: [facility] Ghada Duncan [Primary Care Provider] - 3-5 Days if not improving Disposition Disposition: Home, Self Care
[2021-12-16] MEDS: Ondansetron 4 MG/2 ML Vial IV (13:28)
[2021-12-16] MEDS: Morphine 4 MG/ML Syringe IV (13:30)
[2021-12-16] MEDS: MethylPREDNISolone 125 MG/2 ML Vial 40 MG IV (13:35)
[2021-12-16] MEDS: DiphenhydrAMINE 50 MG/ML Syringe 25 MG IV (13:35)
[2021-12-16 13:41] LABS: Absolute Lymphocyte Count 1.28 X10^3/uL (0.83-4.51); Absolute Neutrophil Count 6.3 X10^3/uL (2.0-7.7); Basophil# 0.03 X10^3/uL; Basophil% 0.4 % (0-1); Eosinophil# 0.01 X10^3/uL; Eosinophils% 0.1 % (0-5); Hematocrit 38.2 % (37-47); Hemoglobin 11.9 g/dL (12.0-15.0); Lymphocyte # 1.28 X10^3/ul (0.83-4.51); Lymphocyte % 15.7 % (19-41); Mean Corp Hgb Conc 31.2 g/dL (32-36); Mean Corpuscular Volume 83.6 fL (81-99); Monocyte# 0.55 X10^3/uL; Monocyte% 6.7 % (0-10); NRBC Flagged by Analyzer 0 % (0-5); Neutrophil # 6.26 X10^3/uL (2.7-7.7); Neutrophil % 76.7 % (47-70); Platelet Count 416 K/mm3 (150-450); RBC Distribution Width CV 14.3 % (11.6-14.6); RBC Distribution Width SD 43.7 fl (35.1-43.9); Red Blood Count 4.57 M/mm3 (4.2-5.4); White Blood Count 8.2 K/mm3 (4.4-11.0)
[2021-12-16 13:57] LABS: AST(SGOT) 42 U/L (15-37); Alanine Aminotransfer ALT/SGPT 38 U/L (13-56); Albumin, Serum 2.7 g/dL (3.2-5.0); Alkaline Phosphatase 119 U/L (45-117); Bilirubin, Direct 0.23 mg/dL (0.00-0.30); Globulin 4.2 g/dL (2.2-4.2); Protein, Total 6.9 g/dL (6.4-8.2)
[2021-12-16] MEDS: Famotidine 200 MG/20 ML MDV 20 MG in 0.9% Normal Saline (Pres. free 8 ML 300 MG IV (14:54)
[2021-12-16 15:03] VITALS: BP 164/80; O2SAT 99
== END 2021-12-16 15:09 | disposition home or self-care (01) ==
PROVIDERS: Emergency Provider Emergency Medicine; Visit Provider Emergency Medicine
DX: S36.112A Contusion of liver, initial encounter (principal); C78.7 Secondary malignant neoplasm of liver and intrahepatic bile duct; C69.92 Malignant neoplasm of unspecified site of left eye; E11.9 Type 2 diabetes mellitus without complications; R11.0 Nausea; I10 Essential (primary) hypertension; K21.9 Gastro-esophageal reflux disease without esophagitis; Z79.01 Long term (current) use of anticoagulants; Z79.84 Long term (current) use of oral hypoglycemic drugs; Z79.899 Other long term (current) drug therapy; Z85.820 Personal history of malignant melanoma of skin; Z87.891 Personal history of nicotine dependence; Z86.711 Personal history of pulmonary embolism; Z86.718 Personal history of other venous thrombosis and embolism
CPT/HCPCS: 74160; 80076; 85025; 96374; 96375; 99283; Q9967; A4216; J2405; J3490

== ENCOUNTER 2021-12-25 09:08 | Outpatient (CLI) | payer MEDICARE, MEDICAID, SELFPAY ==
--- NOTE | 2021-12-25 09:30 | PET_ITS ---
EXAMINATION: FDG PET/CT ? 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 COMPARISON EXAMINATION: CT of the abdomen report dated 12/16/21 INDEX LESION SIZE SUV INTERPRETATION Left and right lobe hepatic parenchyma 16.9-mm (largest) (frame 449) 5.3 (max) ratio > 2.0 Fulfills quantitative criteria for viable neoplasm Right upper abdomen, pericaval, suzie-hepatic soft tissue nodularity 28.6-mm (largest) (frame 434) 6.5 (max) Fulfills quantitative criteria for viable neoplasm Appendicular, axial skeletal structures 7.6 (max) Fulfills quantitative criteria for viable neoplasm TECHNIQUE: Following the intravenous administration of 12.1 mCi of F-18 deoxyglucose via the right antecubital fossa, multiplanar image acquisitions of the head, neck, chest, abdomen and pelvis, lower extremities to the level of the bilateral feet, obtained at one hour post radiopharmaceutical administration contemporaneously interpreted with the current CT of the head, neck, chest, abdomen and pelvis, lower extremities to the level of the bilateral feet, dated 12/25/[address] of the abdomen report dated 12/16/21 reveal: SERUM GLUCOSE LEVEL: 140 mg/dl. HEIGHT: 63 inches. WEIGHT: 157 lbs. FINDINGS: 1. Heterogeneous multifocal increased labeled GLUCOSE metabolism is defined in the left and right lobes of a prominent-sized liver, demonstrating a maximal vertical dimension of 8.3-cm (normal<18.5-cm). The calculated maximal standard uptake value is 5.3, with a lesion to liver background ratio greater than 2.0. The maximal axial diameter of the largest metabolic, morphologic abnormality on review of CT of the abdomen dated 12/25/21 is 16.9-cm (AP). 2. Facilitated FDG uptake is observed in the right upper abdomen in the region of the pericaval, suzie-hepatic lymph node distributions. The calculated maximal standard uptake value is 6.5. The maximal axial diameter of the largest individual metabolic, morphologic abnormality on review of CT of the abdomen dated 12/25/21 is 28.6-mm (transverse). 3. Innumerable foci of increased tracer concentration are defined in the appendicular and axial skeletal structures to include multiple thoracic and lumbar vertebrae, the right anterolateral chest wall associated with the fifth rib, left proximal humeral metaphysis and diaphysis, right proximal humeral diaphysis, the right proximal femoral metaphysis and diaphysis. The calculated maximal standard uptake value is 7.6. 4. Normal physiologic distribution of the radiopharmaceutical is apparent in the splenic parenchyma, both renal units, bladder and visualized intestinal tract. The visualized portion of the cerebral cortical-subcortical structures demonstrate symmetric and preserved glucose metabolism. Pertinent CT findings are as follows: CHEST: There is atherosclerotic calcification defined in the thoracic aorta without evidence of dilatation-aneurysm formation. Coronary arterial calcification is observed. Bilateral axillary subcentimeter soft tissue densities with fatty hilus are ametabolic. Mediastinal soft tissue densities demonstrate no evidence of quantitatively significant increased FDG uptake. There are no parenchymal densities-nodules defined in the right and left hemithorax with discernible increased FDG uptake. A hiatal hernia is defined. ABDOMEN AND PELVIS: The gallbladder is surgically absent. There is borderline fatty metamorphosis-steatosis defined in the hepatic parenchyma. A ventral midline hernia is noted with associated intestinal tract. The uterus appears surgically absent. Free pelvic fluid noted in the right-midline lower posterior pelvis reveals no evidence of increased tracer concentration. SKELETAL: Degenerative changes are noted in the cervical, thoracic and lumbar spine without evidence of increased radiopharmaceutical concentration. Primarily lytic change is manifest in the region of the right anterolateral fifth rib. PET/PET/CT Tumor WB Subs IMPRESSION: 1. ABNORMAL EXAMINATION INDICATIVE OF MALIGNANT-METASTATIC VIABLE NEOPLASM. 2. Increased glucose concentration observed in the left and right lobe of the hepatic parenchyma fulfills quantitative criteria for viable hepatic parenchymal metastatic disease. (Sedrickbebrayan et al, Archives of Surgery, 133:[id number] 1997). 3. Enhanced tracer uptake observed in the right upper-mid abdomen corresponding to pericaval and suzie-hepatic soft tissue nodularity fulfills quantitative criteria for viable metastatic disease. 4. Appendicular and axial skeletal structures hypermetabolic fulfill quantitative criteria for viable osseous metastasis. (Abe et al, Clinical Nuclear Medicine, 29:161, 2004). Electronic Signature Germán Hadley D.O. Accurate Quantification of SUVs for this report are calculated using the exclusive [employer]. ([place]. Patent No. 10, [id number]). Standardization and correction of the FDG SUV metric via [employer] technology allow for vendor non-specific objective quantitative examination comparison and optimization of the sensitivity and specificity of the FDG PET-CT examination. Electronically Signed: Germán Hadley DO at 22:22 EDT ,
== END 2021-12-25 23:59 | disposition home or self-care (01) ==
LOC: ONC 09:09
PROVIDERS: Referring Provider Internal Medicine Hematology & Oncology; Visit Provider Internal Medicine Hematology & Oncology
DX: C69.32 Malignant neoplasm of left choroid (principal); C78.7 Secondary malignant neoplasm of liver and intrahepatic bile duct
CPT/HCPCS: 78816; A9552; A9595